=== PATIENT | male | born 1945 | race Caucasian/White ===

== ENCOUNTER 2016-07-09 14:21 | Emergency (ER) | payer OTHER ==
[~2016-07-09] VITALS: Ht 177.8 cm; Wt 85.8 kg
[~2016-07-09 14:21] MED LIST: CIPRO500 MG PO; FLAGYL500 MG PO; FLOMAX0.4 MG PO; HYZAAR 50-121 TABLET PO; PERCOCET 5/31 TABLET PO; PRAVACHOL40 MG PO; TRICOR145 MG PO; ZOFRAN4 MG PO
[2016-07-09 14:47] LABS: ADD MIUA? YES; BILIRUBIN NEGATIVE; BLOOD SMALL; COLOR YELLOW ((YELLOW)); GLUCOSE (STRIP) NEGATIVE; KETONES NEGATIVE; LEUKOCYTES MODERATE; NITRITE NEGATIVE; PROTEIN (STRIP) TRACE; SPECIFIC GRAVITY 1.021 (1.000-1.030)
[2016-07-09 15:10] LABS: RED BLOOD CELLS 15-20 /HPF (0-5); URBC NUMBER 89.2
[2016-07-09 15:11] LABS: BACTERIA NONE SEEN; CASTS NONE SEEN /LPF; CRYSTALS NONE SEEN; EPITHELIAL CELLS RARE; MUCUS NONE SEEN; UBAC NUMBER 38.7; UCUL ADDED? YES; UEPI NUMBER 9.2; UWBC NUMBER 304.6; WHITE BLOOD CELLS TNTC /HPF (0-5)
[2016-07-09 15:16] LABS: HEMATOCRIT 39.8 % (38.0-50.0); MCH 30.9 PG (29.0-34.0); MCHC 33.7 G/DL (30.0-36.0); MCV 91.9 FL (86-99); MEAN PLAT.VOLUME 9.5 uM^3 (9.0-12.4); PLATELET COUNT 385 K/uL (156-360); RBC DIS.WIDTH-SD 45.7 % (39-53); RED BLOOD COUNT 4.33 M/uL (4.00-5.50); WHITE BLOOD COUNT 14.5 K/uL (4.1-10.2)
[2016-07-09 15:30] LABS: CHLORIDE 106 mEq/L (99-109); POTASSIUM 3.5 mEq/L (3.7-5.4); SODIUM 144 mEq/L (136-147)
[2016-07-09 15:32] LABS: GLUCOSE 138 mg/dL (70-99)
[2016-07-09 15:33] LABS: ANION GAP 13 MEQ/L (2-14)
[2016-07-09 15:34] LABS: TOTAL BILIRUBIN 0.5 mg/dL (0.0-1.0)
[2016-07-09 15:35] LABS: ALKALINE PHOSPHATASE 33 IU/L (3-129)
[2016-07-09 15:36] LABS: GFR ESTIMATE (CALCULATED) 58 mL/min/
[2016-07-09 15:37] LABS: UREA NITROGEN (BUN) 22 mg/dL (9-23)
[2016-07-09] MEDS ORDERED: MULTI VITAMIN1 EACH PO (16:27)
[2016-07-09] MEDS ORDERED: NORCO 5/3251 TABLET PO (18:31)
[2016-07-09] MEDS ORDERED: FLAGYL500 MG PO (18:31)
[2016-07-09] MEDS ORDERED: CIPRO500 MG PO (18:31)
[2016-07-09 18:46] VITALS: BP 121/62
== END 2016-07-09 18:52 | disposition home or self-care (01) ==
LOC: EME 14:21
DX: K57.92 Diverticulitis of intestine, part unspecified, without perforation or abscess without bleeding (principal); N30.00 Acute cystitis without hematuria; I10 Essential (primary) hypertension; F17.200 Nicotine dependence, unspecified, uncomplicated
CPT/HCPCS: 74177; 80053; 81003; 85027; 87086; 99281; 99284; J0744; J2405; J3010; J7030

== ENCOUNTER → 2018-02-04 | Outpatient (CLI) | payer OTHER ==
[~2018-02-04] MED LIST changes: +MULTI VITAMIN1 EACH PO; +NORCO 5/3251 TABLET PO
== END | disposition home or self-care (01) ==
LOC: CDC 08:31
DX: Z01.810 Encounter for preprocedural cardiovascular examination (principal); I49.1 Atrial premature depolarization; I45.4 Nonspecific intraventricular block; R94.31 Abnormal electrocardiogram [ECG] [EKG]
CPT/HCPCS: 93000